=== PATIENT | female | born 1960 | race Caucasian/White ===

== ENCOUNTER → 2016-11-04 | Outpatient (CLI) | payer OTHER ==
[~2016-11-04] MED LIST: FLUT50SP EACH NARE; IOHEXOL 350 MG/ML 10 ML VIAL (for RAD DIAG) IV ONE; NORC5TAB PO
--- NOTE | 2016-11-04 18:02 | RADRPT ---
EXAM DATE/TIME: 11/04/2016 15:31 [facility] COMPARISON: No previous studies available for comparison. INDICATIONS : Evaluate thyroid mass. IV CONTRAST: 80 cc Omnipaque 350 (iohexol) IV RADIATION DOSE: 12.89 CTDIvol (mGy) MEDICAL HISTORY : Thyroid insufficiency. SURGICAL HISTORY : None. ENCOUNTER: Initial ACUITY: 3 days PAIN SCALE: 3/10 LOCATION: Lower neck TECHNIQUE: Volumetric scanning of the neck was performed. Using automated exposure control and adjustment of th e mA and/or kV according to patient size, radiation dose was kept as low as reasonably achievable to obtain optimal diagnostic quality images. FINDINGS: There is a large dominant mass in the right lobe of the thyroid containing solid and cystic or necrot ic features measuring up to 4.5 cm in diameter. Mass results in some tracheal deviation to the left. There is a subcentimeter nodule left lobe thyroid. No pathologically enlarged lymph nodes in the neck. Right submandibular lymph node measures just unde r 1 cm diameter. No airway obstructing lesions or foreign bodies. Lung apices are clear. No acute bony abnormality. CONCLUSION: 1. 4.5 cm circumscribed dominant mass right lobe thyroid containing solid and cystic or necrotic feat ures and resulting in tracheal deviation to the left. This would be amenable to fine needle aspiratio n biopsy which is recommended. No pathologically enlarged lymph nodes in the neck. Kirill Cantor MD on November 04, 2016 at 17:56 Board Certified Radiologist. This report was verified electronically.
== END ==
LOC: HRAD 13:40
PROVIDERS: ATTEND Internal Medicine Geriatric Medicine
DX: E07.9 Disorder of thyroid, unspecified (principal)
CPT/HCPCS: 70491; Q9967

== ENCOUNTER 2016-12-17 13:12 | Day surgery (SDC) | payer OTHER ==
[~2016-12-17 13:12] MED LIST changes: -IOHEXOL 350 MG/ML 10 ML VIAL (for RAD DIAG) IV ONE; -NORC5TAB PO
[2016-12-17 13:59] VITALS: BP 145/90; PULSE 69; RESP 14; TEMP 96.7; O2SAT 99
[2016-12-17 14:30] VITALS: BP 152/86; PULSE 68; RESP 17; TEMP 98.4; O2SAT 100
[2016-12-17 14:45] VITALS: BP 149/84; PULSE 63; RESP 17; O2SAT 100
--- NOTE | 2016-12-17 16:35 | RADRPT ---
EXAM DATE/TIME: 12/17/2016 14:02 [facility] COMPARISON: No previous studies available for comparison. INDICATIONS : Right thyroid nodule. MEDICAL HISTORY : Thyroid nodule. SURGICAL HISTORY : None. ENCOUNTER: Initial ACUITY: > 1 yr PAIN SCORE: 0/10 LOCATION: Right neck ORGAN: Right thyroid lobe SPECIMENS: Three fine needle aspirate(s) submitted for pathologic evaluation. DEVICE: 22 gauge needle Post procedure scanning reveals no hematoma or other complication. The possibility does exist that the tissue obtained will be non-diagnostic. If the sample is non-mitchell gnostic a repeat biopsy or surgical biopsy may need to be performed. TECHNIQUE: 1. Ultrasound guidance for needle biopsy. 2. Needle biopsy. The risks, benefits, and alternatives to ultrasound guided needle biopsy were explained to the patien t in detail including the risk of bleeding and infection. Written and verbal informed consent was ob tained. With the patient on the ultrasound table, images were obtained. Overlying skin was prepped and drape d in the usual sterile fashion and Lidocaine was utilized as a local anesthetic. A needle was advanced into the identified target and the number of specimens as above obtained and thompson bmitted for pathologic evaluation. The patient tolerated the procedure well and left the ultrasound suite in stable condition. CONCLUSION: Uncomplicated ultrasound guided needle biopsy. Jovi Dugan MD on December 17, 2016 at 16:33 Board Certified Radiologist. This report was verified electronically.
[2016-12-17] MEDS ORDERED: LIDOCAINE HCL 1% PF 30 ML VIAL ONE (16:43)
[2017-01-07] MEDS ORDERED: NORC5TAB PO (15:14)
== END 2016-12-17 14:51 | disposition home or self-care (01) ==
LOC: HRAD 13:12 → HRIP 13:13 → HRAD 14:51
PROVIDERS: ATTEND Surgery
DX: E04.1 Nontoxic single thyroid nodule (principal)
CPT/HCPCS: 10022; 76942; 88172; 88173

== ENCOUNTER → 2017-01-07 | Day surgery (SDC) | payer OTHER ==
[~2017-01-07] VITALS: Ht 167.6 cm; Wt 98.7 kg
[~2017-01-07] MED LIST changes: +BUPIVACAINE/EPINEPHRINE 0.5% PF 30 ML VIAL ONE; +CHLORHEXIDINE GLUCONATE 2 % 1 PACK (2 CLOTHS) TOPICAL PRN; +DO NOT ADM ANY ANTICOAGULANT DRUGS PRN; +FAMOTIDINE 20 MG/2 ML VIAL ONE; +INSULIN HUMAN REGULAR 1,000 UNITS/10 ML VIAL SQ PRN; +LACTATED RINGER'S 1000 ML INJ 1,000 ML IV ONE; +LACTATED RINGER'S 1000 ML IV PRN; +METOPROLOL TARTRATE 25 MG TAB PO PRN; +MIDAZOLAM HCL 2 MG/2 ML VIAL ONE; +NEOSTIGMINE 3 MG/3 ML SYR IV ONE; +NORC5TAB PO; +ONDANSETRON HCL 4 MG/2 ML VIAL ONE; +POVIDONE IODINE 5% (ANTISEPSIS KIT) 4 APPLICATIONS EACH NARE PRN; +PROPOFOL 200 MG/20 ML AMP IV ONE; +SODIUM CHLORID 0.9% 500 ML IV PRN; +fentaNYL CITRATE 250 MCG/5 ML AMP ONE
[2017-01-07 12:25] VITALS: BP 140/86; PULSE 77; RESP 16; TEMP 98.4; O2SAT 99
[2017-01-07 12:35] LABS: AUTOMATED NEUTROPHIL # 3.2 TH/MM3 (1.8-7.7); BASOPHIL # 0.1 TH/MM3 (0-0.2); EOSINOPHIL # 0.1 TH/MM3 (0-0.4); EOSINOPHIL % 1.1 % (0.0-4.0); HEMATOCRIT 38.4 % (35.0-46.0); HEMO FLAGS DIFF FINAL; LYMPH % 37.2 % (9.0-44.0); LYMPHOCYTE # 2.2 TH/MM3 (1.0-4.8); MEAN CELL VOLUME 84.8 FL (80.0-100.0); MEAN CORPUSCULAR HEMOGLOBIN 29.2 PG (27.0-34.0); MEAN CORPUSCULAR HGB CONC 34.4 % (32.0-36.0); MONO % 7.5 % (0.0-8.0); NEUT % 53.2 % (16.0-70.0); PLATELET COUNT 216 TH/MM3 (150-450); RED BLOOD COUNT 4.53 MIL/MM3 (4.00-5.30)
--- NOTE | 2017-01-07 15:16 | HHI.PR ---
cc: Kirill Zheng MD Immediate Post Op Note Procedure Date: Jan 07, 2017 Pre Op Diagnosis: (1) Thyroid mass Post Op Diagnosis: (1) Thyroid mass Surgeon: Kirill Zheng Destination Coordinator(s): Refer to or record Procedure: Right thyroid lobectomy with neuro monitoring Findings: Enlarged thyroid Specimen(s) removed: Right thyroid lobectomy Anesthesia: General Drains: None IVF Patient to: PACU Patient Condition: Good Implant/Devices: SEE IMPLANT LOG (if applicable) Date/Time of Procedure: SEE SURGICAL CARE RECORD Kirill Zheng MD Jan 07, 2017 15:16
[2017-01-07 17:21] VITALS: BP 148/84; PULSE 54; RESP 18; TEMP 97.4; O2SAT 97
--- NOTE | 2017-01-07 23:18 | MP ---
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 POSTOPERATIVE DIAGNOSIS Large right-sided thyroid goiter causing airway displacement. PROCEDURE Right thyroid lobectomy with removal of isthmus under neuro monitoring. ANESTHESIA General SURGEON Dr. Dickson Zheng INDICATIONS This is a pleasant 56-year-old female who has had this growing mass in the right side of her neck. Ultrasound was done showing a large thyroid goiter. This was biopsied which showed benign tissue. Because of the displacement of her trachea and the size of this goiter, plans were made for unilateral thyroidectomy. PROCEDURE IN DETAIL Patient was taken to the operating room, placed in supine position. After anesthesia, her neck was prepped with Betadine. Time-out is done. We make a curvilinear incision two fingerbreadths above the sternal notch. Dissect down through platysmal muscle which is elevated superiorly and inferiorly. We divide the strap muscles in the midline at the raphe. We then direct our attention to the right side. Strap muscles were elevated off the enlarged thyroid gland. We were able to take the superior thyroidal vessels down with a harmonic scalpel. There is no middle thyroidal vein. The inferior thyroidal vessels were then ligated with harmonic. The recurrent laryngeal nerve can be seen somewhat stretched out posteriorly from the size of the goiter. We are able to track it coming in from the chest up into the larynx and identify this with neuro monitoring. We have to leave a little bit of thyroid right along the proximity of the nerve to prevent injury to the nerve. Then we are able to elevate the thyroid off, right off the trachea just to the left side of the isthmus and the gland is then amputated. This is passed off the field after marking it with a stitch 12 o'clock at the superior lobe of thyroid. Left gland is palpated. I do not feel any abnormality. We then irrigate copiously. We recheck the recurrent laryngeal nerve. There is good waveform through the neuro monitor. We place a little Joanna along the trachea close to the recurrent laryngeal nerve to prevent injury to the recurrent laryngeal nerve. After this was done, we then remove all the irrigating solution. Lap and sponge counts are correct. We then close the midline raphe with 3-0 Vicryl, platysma muscle was reapproximated with 3-0 Vicryl and skin is closed with 4-0 Monocryl. Steri-Strips applied. Sterile bandage applied. The patient tolerated procedure well and had no immediate postop complications. MD THAD Browne/ /4:44 PM /11:04 PM
--- NOTE | 2017-01-08 17:55 | EKG ---
Date Performed: 01/07/2017 Time Performed: 12:53:24 PTAGE: 56 years EKG: Sinus rhythm WITH SINUS ARRHYTHMIA NORMAL ECG NO PREVIOUS TRACING DOCTOR: Rogers Mcneil Interpretating Date/Time 01/08/2017 17:53:44
== END | disposition home or self-care (01) ==
LOC: HSDC 11:34
PROVIDERS: ATTEND Surgery
DX: E04.2 Nontoxic multinodular goiter (principal); Z87.891 Personal history of nicotine dependence
CPT/HCPCS: 00320; 60220; 85025; 88307; 88342; 93005; J2250; J2405; J2710; J3010; J7120; 88341